=== PATIENT | male | born 1945 | race Caucasian/White ===

== ENCOUNTER 2021-11-07 17:51 | Emergency (ER) | payer MEDICARE ==
[~2021-11-07] VITALS: Ht 175.3 cm; Wt 68.0 kg
[2021-11-07 18:25] VITALS: BP 142/89
--- NOTE | 2021-11-07 18:30 | NUR ---
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 RATES PAIN 4/10. WILL CONTINUE TO MONITOR.
[2021-11-07] MEDS ORDERED: AMOX-430 PO (18:58)
== END 2021-11-07 20:21 | disposition home or self-care (01) ==
LOC: ER 17:54
DX: S61.452A Open bite of left hand, initial encounter (principal); Z79.899 Other long term (current) drug therapy; W54.0XXA Bitten by dog, initial encounter; Y93.89 Activity, other specified; Y92.89 Other specified places as the place of occurrence of the external cause; Y99.8 Other external cause status
CPT/HCPCS: 12002; 73130; 99283; A6403

== ENCOUNTER 2022-05-11 13:09 | Emergency (ER) | payer MEDICARE ==
[~2022-05-11] VITALS: Ht 175.3 cm; Wt 68.0 kg
[~2022-05-11 13:09] MED LIST: AMOX-430 PO
--- NOTE | 2022-05-11 13:31 | NUR ---
PT PLACED IN BED, AWAITING MD LINCOLN.
[2022-05-11] MEDS ORDERED: LIDOCAINE 1% INJ 50 ML MDV IJ ONE ×2 (13:34→14:00)
--- NOTE | 2022-05-11 13:37 | NUR ---
SUTURE SUPPLIES PREPARED AT BEDSIDE.
--- NOTE | 2022-05-11 13:58 | NUR ---
Patient discharged to home in stable condition. Written and verbal after care instructions given. Patient verbalizes understanding of instruction.
[2022-05-11 13:59] VITALS: BP 130/62
== END 2022-05-11 14:02 | disposition home or self-care (01) ==
LOC: ER 13:14
DX: S01.112A Laceration without foreign body of left eyelid and periocular area, initial encounter (principal); Z60.2 Problems related to living alone; W18.09XA Striking against other object with subsequent fall, initial encounter; Y93.89 Activity, other specified; Y92.89 Other specified places as the place of occurrence of the external cause; Y99.8 Other external cause status
CPT/HCPCS: 99282; 12011; J3490; A6403